=== PATIENT | female | born 1960 | race Caucasian/White ===

== ENCOUNTER 2019-09-03 21:03 | Emergency (ER) | payer OTHER ==
[~2019-09-03] VITALS: Ht 152.4 cm; Wt 100.0 kg
[~2019-09-03 21:03] MED LIST: CIPR500T94 PO; CITA20TA9 PO; METO25TA4 PO; ZOLP5TAB PO
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
[2019-09-03] MEDS ORDERED: LIDOCAINE 2% VISCOUS 15 ML SOLUTION. SWSW ONE (21:30)
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
[2019-09-03] MEDS ORDERED: HYDR-3164 PO (22:19)
[2019-09-03] MEDS ORDERED: ORPH100T PO (22:19)
[2019-09-03] MEDS ORDERED: CEPH500C PO (23:00)
[2019-09-03] MEDS ORDERED: oxyCODONE/APAP 7.5/325 1 TAB TABLET PO ONE (23:00)
[2019-09-03] MEDS ORDERED: NEOMY/BACITR/POLYMYXIN OINT PACKET. TP ONE ×2 (23:06→23:30)
[2019-09-03 23:15] VITALS: BP 148/94
[2019-09-03] MEDS ORDERED: DIPH,PERTUSS(ACELL),TET VAC/PF 0.5 ML SYRINGE. VAX IM ONE (23:30)
== END 2019-09-03 23:21 | disposition home or self-care (01) ==
LOC: ER 21:03
DX: S13.9XXA Sprain of joints and ligaments of unspecified parts of neck, initial encounter (principal); S50.312A Abrasion of left elbow, initial encounter; S50.812A Abrasion of left forearm, initial encounter; R10.2 Pelvic and perineal pain; R07.89 Other chest pain; F17.200 Nicotine dependence, unspecified, uncomplicated; V49.88XA Car occupant (driver) (passenger) injured in other specified transport accidents, initial encounter; Y93.89 Activity, other specified; Y92.488 Other paved roadways as the place of occurrence of the external cause; Y99.8 Other external cause status
CPT/HCPCS: 71045; 72125; 72170; 73090; 90471; 90715; 99285-25; A4565